=== PATIENT | female | born 1960 | race Caucasian/White ===

== ENCOUNTER → 2016-09-17 | Day surgery (SDC) | payer BC ==
[2016-09-07 12:53] VITALS: BMI 40.0
[~2016-09-17] VITALS: Ht 165.1 cm; Wt 109.1 kg
[~2016-09-17] MED LIST: CHOL1000 PO; CYAN100T6 PO; LEVE1TAB57 PO; LIDOCAINE HCL 2% 2 ML VIAL (20MG/ML) ONE; MESA0.37 PO; METF-384 PO; PROPOFOL IV EMULSION 10 MG/ML 20 ML VIAL IV ONE; SODIUM CHLORIDE 0.9% 500ML 500 ML IV ONE; VNTHFA/IN INH
[2016-09-17 10:41] VITALS: Ht 165.1 cm; Wt 109.1 kg
--- NOTE | 2016-09-17 11:34 | Endo History and Physical ---
History & Physical Date of Service: Sep 17, 2016. Chief Complaint: COLITIS Referring Physician: DR. CINDY NUNEZ History of Present Illness 56 yo CF who presents for colonoscopy secondary to colitis. Past Medical History Arthritis, Seizure Disorder Past Surgical History Hx Cardiac Surgery: No Hx Internal Defibrillator: No Hx Pacemaker: No Hx Abdominal Surgery: Yes (GB SURG) Hx Post-Op Nausea and Vomiting: No Hx Cancer Surgery: No Hx Thoracic Surgery: No Hx Orthopedic: No Hx Urinary Tract Surgery: No Family History Colon CA Social History Smoking Status: Light Tobacco Smoker Hx Substance Use: No Hx Alcohol Use: No Allergies Coded Allergies: No Known Allergies (Unverified , 09/17/16) Current Medications Reported Home Medications Medications Dose Route/Sig Max Daily Dose Days Date Category Ventolin Hfa (Albuterol) 200 Puffs/53227 Mcg Aers 2-4 Puffs INH Q6H 09/07/16 Reported Vitamin D3 (Cholecalciferol) 1,000 Unit Tab 5,000 Units PO QAM 90 09/07/16 Reported Vitamin B12 100 Mcg (Cyanocobalamin) 100 Mcg Tab 100 Mcg PO QAM 09/07/16 Reported Glucophage (Metformin Hcl) 1,000 Mg Tab 1,000 Mg PO BID 09/07/16 Reported Keppra (Levetiracetam) 1,000 Mg Tab 2,000 Mg PO BID 02/28/15 Reported Apriso (Mesalamine) 0.375 Gm Cap 4 Capsule PO QAM 09/06/12 Reported Vital Signs Weight (Kilograms): 109.09 Height (Feet): 5 Height (Inches): 5 Date Time Temp Pulse Resp B/P (MAP) Pulse Ox O2 Delivery O2 Flow Rate FiO2 09/17/16 10:42 36.5 61 18 134/72 (92) 96 Room Air Physical Exam General Appearance: WD/WN, no apparent distress Respiratory/Chest: Auscultation: breath sounds normal Cardiovascular: Heart Auscultation: RRR Abdomen: Bowel Sounds: normal Inspection & Palpation: soft, non-distended, no tenderness, guarding & rebound Assessment and Plan Assessment: 56 yo CF who presents for colonoscopy secondary to colitis. Plan: Proceed with colonoscopy.
--- NOTE | 2016-09-17 12:15 | Anesthesiology Progress Note ---
Anesthesia Post Op Note Date & Time Sep 17, 2016 at 12:15 Vital Signs Pain Intensity: 0 Vital Signs Past 12 Hours Date Time Temp Pulse Resp B/P (MAP) Pulse Ox O2 Delivery O2 Flow Rate FiO2 09/17/16 10:42 36.5 61 18 134/72 (92) 96 Room Air Notes Mental Status: alert / awake / arousable, participated in evaluation Pt Amnestic to Procedure: Yes Nausea / Vomiting: adequately controlled Pain: adequately controlled Airway Patency, RR, SpO2: stable & adequate BP & HR: stable & adequate Hydration State: stable & adequate Anesthetic Complications: no major complications apparent
--- NOTE | 2016-09-17 12:24 | GI REPORT ---
Procedure Date: 09/17/2016 11:37 AM Procedure: Colonoscopy Indications: Follow-up of colitis Medicines: Monitored Anesthesia Care Complications: No immediate complications. Estimated Blood Loss: Estimated blood loss: none. Procedure: Pre-Anesthesia Assessment: - Prior to the procedure, a History and Physical was performed, and patient medications and allergies were reviewed. The patient's tolerance of previous anesthesia was also reviewed. The risks and benefits of the procedure and the sedation options and risks were discussed with the patient. All questions were answered, and informed consent was obtained. Prior Anticoagulants: The patient has taken no previous anticoagulant or antiplatelet agents. ASA Grade Assessment: II - A patient with mild systemic disease. After reviewing the risks and benefits, the patient was deemed in satisfactory condition to undergo the procedure. After I obtained informed consent, the scope was passed under direct vision. Throughout the procedure, the patient's blood pressure, pulse, and oxygen saturations were monitored continuously. The scope was introduced through the anus and advanced to the terminal ileum. The colonoscopy was performed without difficulty. The patient tolerated the procedure well. The quality of the bowel preparation was good. The terminal ileum, ileocecal valve, appendiceal orifice, and rectum were photographed. Findings: Multiple small-mouthed diverticula were found in the sigmoid colon. Non-bleeding internal hemorrhoids were found during retroflexion. The hemorrhoids were small. Several random biopsies were obtained with cold forceps for histology in the entire colon. Anal papilla(e) were hypertrophied. Impression: - Diverticulosis in the sigmoid colon. - Non-bleeding internal hemorrhoids. - Anal papilla(e) were hypertrophied. - Several random biopsies were obtained in the entire colon. Recommendation: - Resume previous diet. - Continue present medications. - Repeat colonoscopy for surveillance based on pathology results. - Return to primary care physician as previously scheduled. - Refer to a colo-rectal surgeon at appointment to be scheduled. Sohail Corcoran DO 09/17/2016 12:23:35 PM This report has been signed electronically. Note Initiated On: 09/17/2016 11:37 AM I attest to the content of the Intraoperative Record and orders documented therein, exceptions below
--- NOTE | 2016-09-17 12:27 | Discharge Instructions ---
Endoscopy Patient Instructions Date / Procedure(s) Performed Sep 17, 2016. Colonoscopy Allergy Information Coded Allergies: No Known Allergies (Unverified , 09/17/16) Discharge Date / Findings Sep 17, 2016. Random colon biopsies Diverticulosis Internal hemorrhoids Hypertrophied anal papillae Medication Instructions Stopped Medication(s): METFORMIN OK to resume all medications today as prescribed Medications Dose Route/Sig Max Daily Dose Days Date Category Ventolin Hfa (Albuterol) 200 Puffs/47952 Mcg Aers 2-4 Puffs INH Q6H 09/07/16 Reported Vitamin D3 (Cholecalciferol) 1,000 Unit Tab 5,000 Units PO QAM 90 09/07/16 Reported Vitamin B12 100 Mcg (Cyanocobalamin) 100 Mcg Tab 100 Mcg PO QAM 09/07/16 Reported Glucophage (Metformin Hcl) 1,000 Mg Tab 1,000 Mg PO BID 09/07/16 Reported Keppra (Levetiracetam) 1,000 Mg Tab 2,000 Mg PO BID 02/28/15 Reported Apriso (Mesalamine) 0.375 Gm Cap 4 Capsule PO QAM 09/06/12 Reported Provider Instructions Activity Restrictions - No exercising or heavy lifting for 24 hours. - Do not drink alcohol the day of the procedure. - Do not drive a car or operate machinery until the day after the procedure. - Do not make any important decisions or sign important papers in 24 hours after the procedure. Following Day: - Return to full activity which may include returning to work/school. Diet Start your diet with liquids and light foods (jello, soup, juice, toast). Then eat your usual diet if not nauseated. Treatment For Common After Affects For mild abdominal pain, bloating, or excessive gas: - Rest - Eat lightly - Lie on right side Follow-Up Information Follow-up with DR. CINDY NUNEZ as scheduled Anesthesia Information What You Should Know You have had a procedure that required some medicine to reduce anxiety and discomfort. This treatment is called moderate sedation. After receiving the treatment, you may be sleepy, but you will be able to breathe on your own. The effects of the treatment may last for several hours. Follow these instructions along with Activity/Diet recommendations noted above: * Do NOT do anything where dizziness or clumsiness would be dangerous. * Rest quietly at home today, then you can be up and about tomorrow. * Have a responsible person stay with you the rest of today. * You may have had an I.V. today. If so, you may take the dressing off later today. Recommendations Call your doctor if: * Trouble breathing * Continuous vomiting for more than 24 hours * Temperature above 101 degrees * Severe abdominal pain or bloating * Pain not relieved by pain medicine ordered * There is increased drainage or redness from any incision * A large amount of rectal bleeding greater than 2-3 tablespoons. (If you had a polyp/s removed or have hemorrhoids, a small amount of blood - from the rectum is to be expected.) * You have any unanswered questions or concerns. IN THE EVENT OF A SERIOUS EMERGENCY, GO TO THE NEAREST EMERGENCY ROOM Your discharge instructions were prepared by provider Sohail Corcoran. Patient Instructions Signature Page Meeta Valdivia Patient (or Guardian) Signature/Date: I have read and understand the instructions given to me by my caregivers. Caregiver/RN/Doctor Signature/Date: The above-named patient and/or guardian has received patient instructions on this date. + Original Patient Signature Page (only) stays with chart. Please make copy for patient.
[2016-09-17 12:41] VITALS: BP 126/70; PULSE 62; O2SAT 94
== END | disposition home or self-care (01) ==
LOC: C.GI 10:25
PROVIDERS: ATTEND Internal Medicine
DX: K52.9 Noninfective gastroenteritis and colitis, unspecified (principal); K64.8 Other hemorrhoids; K62.89 Other specified diseases of anus and rectum; G40.909 Epilepsy, unspecified, not intractable, without status epilepticus; M19.90 Unspecified osteoarthritis, unspecified site; F17.210 Nicotine dependence, cigarettes, uncomplicated; K57.30 Diverticulosis of large intestine without perforation or abscess without bleeding

== ENCOUNTER → 2016-10-21 | Outpatient (CLI) | payer BC ==
[~2016-10-21] MED LIST changes: -LIDOCAINE HCL 2% 2 ML VIAL (20MG/ML) ONE; -PROPOFOL IV EMULSION 10 MG/ML 20 ML VIAL IV ONE; -SODIUM CHLORIDE 0.9% 500ML 500 ML IV ONE
== END | disposition home or self-care (01) ==
LOC: C.PAPS 11:30
PROVIDERS: ATTEND Obstetrics & Gynecology
DX: Z01.419 Encounter for gynecological examination (general) (routine) without abnormal findings (principal)

== ENCOUNTER → 2017-05-18 | Outpatient (CLI) | payer OTHER ==
--- NOTE | 2017-05-18 12:07 | DIAGNOSTIC IMAGING REPORT ---
[facility] CLINICAL HISTORY: Urinary symptoms. COMPARISON STUDY: CT of the abdomen and pelvis September 20, 2017. FINDINGS: No urinary calculi are identified. Bowel gas pattern is normal. No suspicious osseous lesions are identified by radiography. IMPRESSION: 1. No urinary calculi identified. 2. No evidence for a bowel obstruction. Electronically signed by: Rick Harrison M.D. 05/18/2017 12:05 PM Dictated Date/Time: 05/18/2017 12:03 PM
== END | disposition home or self-care (01) ==
LOC: C.LAB1850 11:35
PROVIDERS: ATTEND Internal Medicine
DX: R39.9 Unspecified symptoms and signs involving the genitourinary system (principal)